=== PATIENT | male | born 1965 | race Caucasian/White ===

== ENCOUNTER 2019-01-12 11:45 | Day surgery (SDC) | payer OTHER ==
[~2019-01-12] VITALS: Ht 162.6 cm; Wt 71.7 kg
[~2019-01-12 11:45] MED LIST: Omeprazole20 M1 PO
--- NOTE | 2019-01-12 14:00 | NUR ---
01/12/19 1359 Rimma Delcid WHEN I WENT IN TO ASSESS MY PATIENT I NOTICED THAT THE IV FLUID WAS OUT AND THE ENTIRE 1000CC BAG WAS EMPTY. I HUNG A NEW BAG OF LR 500CC. PATIENT IS STABLE AND LUNGS CLEAR
== END 2019-01-12 14:59 | disposition home or self-care (01) ==
LOC: ORSCSDS 11:45
PROVIDERS: Internal Medicine Gastroenterology
PROC: 0DB58ZX Excision of Esophagus, Via Natural or Artificial Opening Endoscopic, Diagnostic (ICD-10-PCS; principal; 2019-01-12 13:15)
DX: K22.70 Barrett's esophagus without dysplasia (principal); K29.80 Duodenitis without bleeding; K46.9 Unspecified abdominal hernia without obstruction or gangrene; Z79.899 Other long term (current) drug therapy
CPT/HCPCS: 88305; J7120

== ENCOUNTER 2019-12-28 08:29 | Day surgery (SDC) | payer OTHER ==
[~2019-12-28] VITALS: Ht 162.6 cm; Wt 77.2 kg
== END 2019-12-28 11:15 | disposition home or self-care (01) ==
LOC: ORSCSDS 08:29
PROVIDERS: Internal Medicine Gastroenterology
PROC: 0DB58ZX Excision of Esophagus, Via Natural or Artificial Opening Endoscopic, Diagnostic (ICD-10-PCS; principal; 2019-12-28 10:15)
DX: K22.70 Barrett's esophagus without dysplasia (principal); K21.0 Gastro-esophageal reflux disease with esophagitis; K29.80 Duodenitis without bleeding; K44.9 Diaphragmatic hernia without obstruction or gangrene; Z79.899 Other long term (current) drug therapy
CPT/HCPCS: 88305; J2704; J7120